=== PATIENT | male | born 1990 | race Caucasian/White ===

== ENCOUNTER 2016-12-03 09:09 | Emergency (ER) | payer OTHER ==
[2016-12-03] MEDS ORDERED: FAMOTIDINE INJ/PF 20 MG/2 ML SDV IV ONE (09:42)
[2016-12-03] MEDS ORDERED: METHYLPREDNISOLONE INJ 125 MG/2 ML SDV IV ONE (09:42)
[2016-12-03] MEDS ORDERED: DIPHENHYDRAMINE HCL 50 MG/ML VIAL IV ONE (09:42)
--- NOTE | 2016-12-03 09:43 | ER Document Report ---
ED Allergic Reaction - General Mode of Arrival: Ambulatory Information source: Patient TRAVEL OUTSIDE OF THE [place] IN LAST 30 DAYS: No - HPI Onset: Just prior to arrival - 20 min Similar symptoms previously: Yes - when younger, stung by bee <AARON CONLEY - Last Filed: 12/03/16 09:57> <TON CELESTE - Last Filed: 12/03/16 15:21> - General Chief Complaint: Allergic Reaction Stated Complaint: INSECT BITE Time Seen by Provider: 12/03/16 09:27 Notes: Patient is a 26 year old male who presents to the ED with complaints of numbness , blurred vision, and dizziness secondary to a bee sting 20 minutes [employer]. Patient was stung on his back. Patient does not feel itching anywhere else. Patient states his blurry vision is improving. Patient denies chest pain, SOB, vomiting or diarrhea but states that he was nauseous after the sting. Patient reports that his entire body feels numb and tingling. Patient states when he was younger he was stung by a bee and had difficulty breathing. (AARON CONLEY) - Related Data Allergies/Adverse Reactions: No Known Allergies Allergy (Verified 12/03/16 09:11) Past Medical History - General Information source: Patient - Social History Smoking Status: Current Every Day Smoker Chew tobacco use (# tins/day): No Smoking Education Provided: Yes Frequency of alcohol use: None Drug Abuse: None Family History: Reviewed & Not Pertinent Patient has suicidal ideation: No Patient has homicidal ideation: No Pulmonary Medical History: Reports: Hx Asthma Renal/ Medical History: Denies: Hx Peritoneal Dialysis - Immunizations Hx Diphtheria, Pertussis, Tetanus Vaccination: Yes <AARON CONLEY - Last Filed: 12/03/16 09:57> - Social History Smoking Education Provided: Yes - Greater than 5 minutes <TON CELESTE - Last Filed: 12/03/16 15:21> Review of Systems - Review of Systems Constitutional: No symptoms reported EENT: See HPI, Blurred vision Cardiovascular: See HPI, Dizziness. denies: Chest pain Respiratory: See HPI. denies: Short of breath Gastrointestinal: See HPI, Nausea. denies: Diarrhea, Vomiting Genitourinary: No symptoms reported Male Genitourinary: No symptoms reported Musculoskeletal: No symptoms reported Skin: See HPI, Other - bee sting Hematologic/Lymphatic: No symptoms reported Neurological/Psychological: See HPI, Numbness, Tingling <YAELAARON - Last Filed: 12/03/16 09:57> Physical Exam <YAELAARON - Last Filed: 12/03/16 09:57> <TON CELESTE - Last Filed: 12/03/16 15:21> - Vital signs Vitals: Temp Pulse Resp BP Pulse Ox 97.9 F 95 20 145/84 H 97 12/03/16 09:12 12/03/16 09:12 12/03/16 09:12 12/03/16 09:12 12/03/16 09:12 - Notes Notes: GENERAL: Alert, interacts well. No acute distress. HEAD: Normocephalic, atraumatic. EYES: Pupils equal, round, and reactive to light. Extraocular movements intact. ENT: Oral mucosa moist, tongue midline. NECK: Full range of motion. Supple. Trachea midline. LUNGS: Trace expiratory wheezing in right lower lobe. No rales, or rhonchi. No respiratory distress. HEART: Regular rate and rhythm. No murmurs, gallops, or rubs. ABDOMEN: Soft, non-tender. Non-distended. Bowel sounds present in all 4 quadrants. EXTREMITIES: Moves all 4 extremities spontaneously. No edema, radial and dorsalis pedis pulses 2/4 bilaterally. No cyanosis. NEUROLOGICAL: Alert and oriented x3. Normal speech. PSYCH: Normal affect, normal mood. SKIN: Warm, dry, normal turgor. Invenimation jonna right side of midback just right of spine, raised wheel that is approximately 1.5cm in diameter with surrounding area of erythema that is [id number] (YAELAARON) Course <YAELAARON - Last Filed: 12/03/16 09:57> <TON CELESTE - Last Filed: 12/03/16 15:21> - Re-evaluation Re-evalutation: 12/03/16 11:25 No Evidence of anaphylaxis at this time, no respiratory compromise, patient has been rechecked and his symptoms have not progressed. Patient was treated with Pepcid, Benadryl and Solu-Medrol. No indication for epinephrine. Patient will be discharged to home with advice to continue taking Pepcid and Benadryl and to return to the emergency department should his symptoms worsen 12/03/16 15:21 (TON CELESTE) - Vital Signs Vital signs: Temp Pulse Resp BP Pulse Ox 97.3 F 95 16 120/72 96 12/03/16 12:15 12/03/16 09:12 12/03/16 12:01 12/03/16 12:01 12/03/16 12:01 Discharge <AARON CONLEY - Last Filed: 12/03/16 09:57> <TON CELESTE - Last Filed: 12/03/16 15:21> - Discharge Clinical Impression: Tobacco abuse, Tobacco abuse counseling Allergic reaction to insect sting Qualifiers: Encounter type: initial encounter Injury intent: accidental or unintentional Qualified Code(s): T63.481A - Toxic effect of venom of other arthropod, accidental (unintentional), initial encounter Condition: Stable Disposition: HOME, SELF-CARE Additional Instructions: Insect Sting You've been stung by an insect. The venom can cause pain, redness, and swelling. You should apply cold compresses, rest and elevate the affected part, and take antihistamines such as Pepcid and Benadryl. A more severe, itchy red swelling sometimes develops the next day. This is a local allergic reaction to the venom. This local allergy isn't dangerous. We treat it with antihistamines. If you develop a fever, chills, a red streak, or swollen glands in the area of the bite, infection may be starting. Return at once. Insect stings from the bee and hornet family may cause a severe allergic reaction. Symptoms include hoarseness, shortness of breath, general redness of the skin, general itching, or lightheadedness. If any of these symptoms occur, call 911 and return immediately. You should take Pepcid 1 tablet twice a day and Benadryl 1 tablet every 6 hours as needed for itching Forms: Return to Work, Smoking Cessation Education Scribe Attestation: 12/03/16 15:21 I personally performed the services described in the documentation, reviewed and edited the documentation which was dictated to the scribe in my presence, and it accurately records my words and actions. (TON CELESTE) Scribe Documentation - Scribe Written by Andry:: andry Larose, 12/03/2016, [id number] acting as scribe for :: Nito <AARON CONLEY - Last Filed: 12/03/16 09:57>
[2016-12-03 12:08] VITALS: BP 120/72
== END 2016-12-03 12:16 | disposition home or self-care (01) ==
LOC: ER 09:09
DX: T63.441A Toxic effect of venom of bees, accidental (unintentional), initial encounter (principal); R42 Dizziness and giddiness; H53.8 Other visual disturbances; R20.0 Anesthesia of skin; R11.0 Nausea; R20.2 Paresthesia of skin; J45.909 Unspecified asthma, uncomplicated; F17.200 Nicotine dependence, unspecified, uncomplicated; Z71.6 Tobacco abuse counseling
CPT/HCPCS: 99406; 99283; 96374; 96375; J1200; J2930; S0028